=== PATIENT | male | born 1985 | race Caucasian/White ===

== ENCOUNTER 2021-05-16 13:51 | Emergency (ER) | payer BC ==
--- NOTE | 2021-05-16 14:33 | EDM.PDOC ---
ED HPI GENERAL MEDICAL PROBLEM - General Chief Complaint: Cardiovascular Problem Stated Complaint: CHEST PAIN. Time Seen by Provider: 05/16/21 14:05 Source of Information: Reports: Patient - History of Present Illness INITIAL COMMENTS - FREE TEXT/NARRATIVE: 36-year-old gentleman came to the emergency department at the insistence of his girlfriend. He has had difficulty with palpitations off and on throughout most of his life. He has a family history that is positive for early cardiac disease and . His father had stents and bypass by the age of 48. He states that since he has had a tightness in his chest that he places his hand over his mid sternum. The tightness does not radiate and is not associated with dizziness, diaphoresis, or fever/chills. However, the tightness has been fairly consistent and is often associated with palpitations. He has not done anything in particular to relieve the symptoms over the last week. 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 He denies fever, chills, flulike symptoms, nausea, vomiting, diarrhea, constipation, dysuria, hematuria, hematochezia He is an everyday smoker and smokes as much is 1/2 pack or more cigarettes daily. He does have a history of anxiety and states that he has had significant increase in stress over the last week or more. He smokes marijuana occasionally and does consume alcohol but only moderately. Chest Pain Score (Numeric/FACES): 5 - Related Data Allergies Allergy/AdvReac Type Severity Reaction Status Date / Time amoxicillin Allergy Other Verified 05/16/21 14:08 Home Meds: Home Meds Escitalopram Oxalate [Lexapro] 10 mg PO DAILY #90 tablet 05/16/21 [Rx] hydrOXYzine pamoate [Vistaril] 25 mg PO Q6H PRN #120 cap 05/16/21 [Rx] ED ROS GENERAL - Review of Systems Review Of Systems: See Below Constitutional: Reports: No Symptoms HEENT: Reports: No Symptoms Respiratory: Reports: No Symptoms Cardiovascular: Reports: Chest Pain, Palpitations Endocrine: Reports: No Symptoms GI/Abdominal: Reports: No Symptoms : Reports: No Symptoms Musculoskeletal: Reports: No Symptoms Neurological: Reports: No Symptoms Psychiatric: Reports: No Symptoms Hematologic/Lymphatic: Reports: No Symptoms Immunologic: Reports: No Symptoms ED EXAM, GENERAL - Physical Exam Exam: See Below Exam Limited By: No Limitations General Appearance: Alert, Anxious Eye Exam: Bilateral Eye: EOMI, PERRL Head: Atraumatic, Normocephalic Neck: Normal Inspection, Supple Respiratory/Chest: No Respiratory Distress, Lungs Clear Cardiovascular: Regular Rate, Rhythm, No Murmur Peripheral Pulses: 2+: Radial (L), Radial (R), Dorsalis Pedis (L), Dorsalis Pedis (R) GI/Abdominal: Normal Bowel Sounds, Soft Back Exam: Normal Inspection Extremities: Normal Inspection Neurological: Alert, Oriented, CN II-XII Intact, Normal Cognition, Normal Gait Psychiatric: Anxious Skin Exam: Warm, Dry Course - Vital Signs Text/Narrative:: Review of EKG and lab work is grossly within normal limits. There was a mildly increased bilirubin and AST/ALT with unclear etiology. Patient has no abdominal symptoms. This is likely related to anxiety/panic attack. Patient and his significant other stated that he did basically have a panic attack in the emergency room while waiting for lab results. He became tachycardic, shaky, had some chest pressure, and wanted to leave very badly. Last Recorded V/S: Last Vital Signs Temp 37.3 C 05/16/21 14:09 Pulse 89 05/16/21 14:09 Resp 18 05/16/21 14:09 BP 164/110 H 05/16/21 14:09 Pulse Ox 100 05/16/21 14:09 - Orders/Labs/Meds Orders: Active Orders 24 hr Category Date Time Status EKG Documentation Completion [RC] ASDIRECTED Care 05/16/21 14:20 Active EKG 12 Lead [EK] Routine Ther 05/16/21 14:19 Ordered Labs: Laboratory Tests 05/16/21 05/16/21 05/16/21 Range/Units 14:45 14:45 14:45 WBC 6.7 (3.2-10.1) x10-3/uL RBC 4.98 (3.90-5.90) x10(6)uL Hgb 16.1 (12.9-17.7) g/dL Hct 47.5 (38.3-50.1) % MCV 95.3 (80.8-98.7) fL MCH 32.3 (27.0-33.3) pg MCHC 33.8 (28.7-35.3) g/dL RDW 12.6 (12.4-15.0) % Plt Count 251 (117-477) x10(3)uL MPV 7.1 (6.7-11.0) fL Neut % (Auto) 48.9 (40.3-71.8) % Lymph % (Auto) 39.4 (15.8-45.3) % Garrard % (Auto) 8.3 (5.5-15.2) % Eos % (Auto) 2.6 (0.1-6.8) % Baso % (Auto) 0.8 (0.3-3.8) % Neut # (Auto) 3.3 (1.7-6.9) x10-3/uL Lymph # (Auto) 2.6 (0.5-4.5) x10-3/uL Garrard # (Auto) 0.6 (0.0-1.2) x10-3/uL Eos # (Auto) 0.2 (0.0-0.6) x10-3/uL Baso # (Auto) 0.1 (0.0-0.3) x10-3/uL Sodium 140 (135-145) mmol/L Potassium 3.8 (3.5-5.3) mmol/L Chloride 100 (100-110) mmol/L Carbon Dioxide 31 (21-32) mmol/L BUN 11 (7-18) mg/dL Creatinine 1.1 (0.70-1.30) mg/dL Est Cr Clr Drug Dosing 97.13 mL/min Estimated GFR (MDRD) > 60 (>60) BUN/Creatinine Ratio 10.0 (9-20) Glucose 97 (80-116) mg/dL Calcium 9.4 (8.6-10.2) mg/dL Total Bilirubin 1.4 H (0.1-1.3) mg/dL AST 38 H (5-25) IU/L ALT 78 H (12-36) U/L Alkaline Phosphatase 80 (56-112) IU/L Troponin I 5.3 (4.0-60.3) pg/mL Total Protein 7.4 (6.0-8.0) g/dL Albumin 4.1 (3.5-5.2) g/dL Globulin 3.3 g/dL Albumin/Globulin Ratio 1.2 Meds: Medications Discontinued Medications Generic Name Dose Route Start Last Admin Trade Name Georgina PRTrav Reason Stop Dose Admin Labetalol HCl 10 mg 05/16/21 14:28 05/16/21 14:37 Labetalol 20 Mg/4 Ml Syringe IVPUSH 05/16/21 14:29 10 mg ONETIME ONE Administration Protocol Departure - Departure Time of Disposition: 15:35 Disposition: Refer to Observation Condition: Good Clinical Impression: Anxiety, Panic attacks, Hypertension Instructions: Panic Attack, [id number], Hypertension, Adult, [id number], Managing Anxiety, Adult Referrals: PCP,Unknown [Primary Care Provider] - Forms: ED Department Discharge Additional Instructions: Discussed the proper use of SSRI such as Lexapro and needed antiangiolytic such as Vistaril. Encouraged to follow-up with primary care within the next several days to 6 weeks. Patient will need Holter monitor to evaluate heart rhythm. I explained to the patient that if he quits Lexapro suddenly that it could make symptoms worse. Patient revealed that he has been treated with Lexapro in the past but did not take it long enough to achieve therapeutic benefit. Sepsis Event Note (ED) - Evaluation Sepsis Screening Result: No Definite Risk - Focused Exam Vital Signs: Vital Signs Temp Pulse Resp BP Pulse Ox 05/16/21 14:09 37.3 C 89 18 164/110 H 100 - My Orders Last 24 Hours: My Active Orders 05/16/21 14:19 EKG 12 Lead [EK] Routine 05/16/21 14:20 EKG Documentation Completion [RC] ASDIRECTED - Assessment/Plan Last 24 Hours: My Active Orders 05/16/21 14:19 EKG 12 Lead [EK] Routine 05/16/21 14:20 EKG Documentation Completion [RC] ASDIRECTED
--- NOTE | 2021-05-16 14:35 | PCM.EKG ---
#1 Interpretation EKG Date: 05/16/21 Time: 14:20 EKG Interpretation Comments: Normal sinus rhythm, rate 75, normal axis, no ST-T segment abnormalities in contiguous leads
[2021-05-16] MEDS: Labetalol 20 MG/4 ML Syringe IVPUSH ONE ×2 (14:37→16:08)
== END 2021-05-16 16:00 | disposition admitted as inpatient to this hospital (09) ==
LOC: FB.ED 13:51
DX: F41.0 Panic disorder [episodic paroxysmal anxiety] (principal); I10 Essential (primary) hypertension; Z88.0 Allergy status to penicillin
CPT/HCPCS: 36415; 80053; 84484; 85025; 93005; 99285-25; J3490